=== PATIENT | female | born 1950 ===

== ENCOUNTER 2017-04-01 13:17 | Outpatient (CLI) | payer MEDICARE, OTHER ==
--- NOTE | 2017-04-01 23:18 | XRay Report ---
FINAL REPORT PROCEDURE: XR KNEE 4+V RT TECHNIQUE: RIGHT knee radiographs, 4 or more views, including AP, lateral, and oblique views. CPT 08652 HISTORY: Right knee pain. COMPARISON: No prior studies are available for comparison. FINDINGS: Fracture (s) and/or Dislocation(s): None . Alignment: Normal . Joint space(s): Moderate tricompartmental narrowing and osteophytes. Patellar enthesophyte. Small joint effusion. Soft tissues: Normal . Bone mineralization: Mild osteopenia. Foreign bodies: None . IMPRESSION: Osteopenia and degenerative change. Small joint effusion.
== END 2017-04-01 13:18 | disposition home or self-care (01) ==
LOC: SPVIMAG 13:17
PROVIDERS: ATTEND Orthopaedic Surgery Sports Medicine
DX: M17.11 Unilateral primary osteoarthritis, right knee (principal); M85.861 Other specified disorders of bone density and structure, right lower leg; M25.461 Effusion, right knee